=== PATIENT | female | born 1985 | race Two or more races ===

== ENCOUNTER 2023-12-20 17:50 | Emergency (ER) | payer OTHER ==
[2023-12-20 18:24] VITALS: TEMP 98.1; BMI 26.8
[2023-12-20] MEDS ORDERED: KETOROLAC TROMETHAMINE 30 MG/1 ML VIAL ONE (20:32)
[2023-12-20] MEDS: SODIUM CHLORIDE 1,000 ML IV STA (20:35)
[2023-12-20] MEDS: KETOROLAC TROMETHAMINE 30 MG/1 ML VIAL IM ONE (20:36)
[2023-12-20 20:39] LABS: BASO % 0.4 % (0-2.0); EOS % 0.5 % (0-4.5); HEMATOCRIT 44.6 % (32.4-45.2); LYMPH % 17.7 % (8-40); MCH 29.9 pg (25.7-33.7); MCHC 33.6 g/dl (32.0-36.0); MEAN CELL VOLUME 89.1 fl (80-96); MEAN PLT VOLUME 9.9 fl (7.5-11.1); MONO % 5.2 % (3.8-10.2); NEUT % 76.2 % (42.8-82.8); PLATELET COUNT 230 10^3/uL (134-434); RBC 5.01 M/mm3 (3.60-5.2); RDW 13.3 % (11.6-15.6); WHITE BLOOD COUNT 9.8 K/mm3 (4.0-10.0)
[2023-12-20 20:45] LABS: EPI CELLS 10 /uL (0-25.1); HYALINE CASTS 0 /uL (0-3.1); URINE APPEARANCE CLEAR; URINE BACTERIA >9,000 /uL (0-1359); URINE BILIRUBIN NEGATIVE (NEGATIVE); URINE COLOR YELLOW; URINE GLUCOSE (UA) NEGATIVE (NEGATIVE); URINE KETONE NEGATIVE (NEGATIVE); URINE LEUK ESTERASE 1+ (NEGATIVE); URINE NITRITE NEGATIVE (NEGATIVE); URINE PROTEIN 2+ (NEGATIVE); URINE RBC 535 /uL (0-23.9); URINE UROBILINOGEN 0.2 mg/dL (0.2-1.0); URINE WBC 131 /uL (0-25.8)
[2023-12-20 20:56] LABS: HCG,QUALITATIVE URINE Negative
[2023-12-20 21:07] LABS: POTASSIUM 4.1 mmol/L (3.5-5.1)
[2023-12-20 21:10] LABS: ALBUMIN 4.2 g/dl (3.4-5.0); CALCIUM 10.3 mg/dL (8.5-10.1)
[2023-12-20 21:13] LABS: CREATININE 0.9 mg/dL (0.55-1.3); PHOSPHOROUS 3.4 mg/dL (2.5-4.9)
[2023-12-20 21:15] LABS: BILIRUBIN,TOTAL 0.6 mg/dL (0.2-1); TOT PROT 8.2 g/dl (6.4-8.2)
[2023-12-20] MEDS ORDERED: SULFAMETHOXAZOLE/TRIMETHOPRIM 800MG/160MG D.S. TABLET ONE (22:14)
[2023-12-20] MEDS: SULFAMETHOXAZOLE/TRIMETHOPRIM 800MG/160MG D.S. TABLET PO ONE (22:18)
[2023-12-20 22:20] VITALS: BP 131/68; PULSE 92; RESP 16
== END 2023-12-20 22:20 | disposition home or self-care (01) ==
LOC: JER 17:50
PROC: 3E0337Z Introduction of Electrolytic and Water Balance Substance into Peripheral Vein, Percutaneous Approach (ICD-10-PCS; principal; 2023-12-20)
PROC: 3E0233Z Introduction of Anti-inflammatory into Muscle, Percutaneous Approach (ICD-10-PCS; 2023-12-20)
DX: N10 Acute pyelonephritis (principal)
CPT/HCPCS: 36415; 80053; 81003; 83690; 84100; 84703; 85025; 87086; 87186; 99284-25